=== PATIENT | female | born 1995 | race Caucasian/White ===

== ENCOUNTER 2017-03-08 11:16 | Emergency (ER) | payer BC ==
[2017-03-08 11:27] VITALS: TEMP 97.5; BMI 24.2
--- NOTE | 2017-03-08 11:59 | PDOC ---
History of Present Illness - General Chief Complaint: Syncope/Near Syncope Stated Complaint: NEAR SYNCOPE/SYNCOPE Time Seen by Provider: 03/08/17 11:35 History Source: Patient, Parent(s) - History of Present Illness Presenting Symptoms: Dizziness, Syncope Timing/Duration: reports: resolved prior to arrival Past History - Past Medical History Allergies/Adverse Reactions: Allergies Allergy/AdvReac Type Severity Reaction Status Date / Time pseudoephedrine AdvReac Verified 03/08/17 11:24 Home Medications: Ambulatory Orders Midodrine HCl 5 mg PO BID 01/26/15 Anemia: Yes Cardiac Disorders: Yes (NEURALLY MEDIATED SYNDROME) COPD: No - Immunization History Td Vaccination: Yes Immunization Up to Date: Yes - Suicide/Smoking/Psychosocial Hx Smoking Status: No Smoking History: Never smoked Have you smoked in the past 12 months: No Number of Cigarettes Smoked Daily: 0 Cigars Per Day: 0 Hx Alcohol Use: No Drug/Substance Use Hx: No Substance Use Type: None Hx Substance Use Treatment: No Review of Systems - Review of Systems Constitutional: No: Chills, Fever Respiratory: No: Shortness of Breath Cardiac (ROS): Yes: Lightheadedness, Syncope. No: Chest Pain, Palpitations ABD/GI: No: Nausea, Vomiting Neurological: Yes: Dizziness. No: Headache *Physical Exam - Vital Signs Last Vital Signs Temp Pulse Resp BP Pulse Ox 97.5 F L 71 18 108/64 100 03/08/17 11:24 03/08/17 11:24 03/08/17 11:24 03/08/17 11:24 03/08/17 11:24 - Physical Exam General Appearance: Yes: Appropriately Dressed. No: Apparent Distress HEENT: positive: Normal Voice Neck: positive: Supple Respiratory/Chest: positive: Lungs Clear, Normal Breath Sounds. negative: Respiratory Distress Cardiovascular: positive: Regular Rate, S1, S2 Gastrointestinal/Abdominal: positive: Soft. negative: Tender Extremity: positive: Normal Inspection Integumentary: positive: Dry, Warm Neurologic: positive: Fully Oriented, Alert, Normal Mood/Affect, Motor Strength 5/5 ED Treatment Course - LABORATORY CBC & Chemistry Diagram: 03/08/17 12:10 03/08/17 12:10 - ADDITIONAL ORDERS Additional order review: Laboratory Results 03/08/17 03/08/17 03/08/17 12:40 12:10 12:10 Sodium Potassium Chloride Carbon Dioxide Anion Gap BUN Creatinine Creat Clearance w eGFR Random Glucose Lactic Acid 0.7 Calcium Total Bilirubin AST ALT Alkaline Phosphatase Creatine Kinase Troponin I Total Protein Albumin Serum , Qual Negative Urine Color Yellow Urine Appearance Slcloudy Urine pH 6.0 Ur Specific [place] 1.016 Urine Protein Negative Urine Glucose (UA) Negative Urine Ketones Negative Urine Blood Negative Urine Nitrite Negative Urine Bilirubin Negative Urine Urobilinogen Negative 03/08/17 12:10 Sodium 139 Potassium 3.5 Chloride 104 Carbon Dioxide 29 Anion Gap 6 L BUN 11 D Creatinine 0.8 Creat Clearance w eGFR > 60 Random Glucose 93 Lactic Acid Calcium 8.9 Total Bilirubin 1.3 H D AST 29 D ALT 40 D Alkaline Phosphatase 65 D Creatine Kinase 97 Troponin I < 0.02 Total Protein 7.0 Albumin 3.8 D Serum , Qual Urine Color Urine Appearance Urine pH Ur Specific [place] Urine Protein Urine Glucose (UA) Urine Ketones Urine Blood Urine Nitrite Urine Bilirubin Urine Urobilinogen 03/08/17 12:10 RBC 4.17 MCV 87.9 MCHC 33.5 RDW 13.0 MPV 8.9 Neutrophils % 69.8 Lymphocytes % 21.3 D Monocytes % 6.9 Eosinophils % 1.2 Basophils % 0.8 - RADIOLOGY Radiology Studies Ordered: Category Date Time Status CHEST PA & LAT [RAD] Stat Radiology 03/08/17 11:51 Completed Medical Decision Making - Medical Decision Making 03/08/17 11:54 Patient is a 21-year-old female with 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 Patient states this a.m. when she awoke, she became lightheaded and syncopized onto her bed in front of her dorm mate. Dorm mate told patient she was out for approximately 5 minutes with possible seizure-like activity. Patient does report that she did have urinary incontinence, no tongue pain. Patient denies history of seizures and, in fact, during workup for syncope in the past, had an EEG which was negative. Patient states she feels better at this time. No headache, nausea, vomiting, chest pain or shortness of breath. See exam Recurrent syncope Dx w/ neurally mediated syncope and on midodrine ?seizure like activity w/ urinary incontinence this am for the first time, reports neg EEG in the past -ekg -labs including lactate (as can be elevated after true seizure) -parents wants me to contact pt's cards, Dr Flores at [phone] with disposition 03/08/17 13:06 Case discussed with patient's outside ambulatory care nurse, Dr. Flores, agrees that if workup is negative, patient can be discharged to follow-up with him 03/08/17 13:39 Workup negative. Patient currently stable for discharge *DC/Admit/Observation/Transfer Diagnosis at time of Disposition: Syncope Qualifiers: Syncope type: unspecified Qualified Code(s): R55 - Syncope and collapse - Discharge Dispostion Disposition: HOME Condition at time of disposition: Improved - Referrals Referrals: Fredo Flores MD [Primary Care Provider] - - Patient Instructions Additional Instructions: Your blood work, EKG and chest x-ray were all normal today. Your ambulatory care nurse wants you to contact him later on today to arrange follow up - Post Discharge Activity
[2017-03-08 12:31] LABS: BASOPHIL 0.8 % (0-2.0); EOSINOPHIL 1.2 % (0-4.5); MCH 29.4 pg (25.7-33.7); MCHC 33.5 g/dl (32.0-36.0); MEAN CELL VOLUME 87.9 fl (80-96); MEAN PLT VOLUME 8.9 fl (7.5-11.1); NEUTROPHILS 69.8 % (42.8-82.8); PLATELET COUNT 246 K/MM3 (134-434); WHITE BLOOD COUNT 6.8 K/mm3 (4.0-10.0)
[2017-03-08 12:50] LABS: ALBUMIN 3.8 g/dl (3.4-5.0); ANION GAP 6 (8-16); BILIRUBIN,TOTAL 1.3 mg/dL (0.2-1.0); CALCIUM 8.9 mg/dL (8.5-10.1); CO2 29 mmol/L (21-32); CREATININE 0.8 mg/dL (0.55-1.02); GLUCOSE,RANDOM 93 mg/dL (74-106); SGOT/AST 29 U/L (15-37); SGPT/ALT 40 U/L (12-78)
[2017-03-08 12:53] LABS: ALK PHOS 65 U/L (45-117); CPK 97 IU/L (26-192); TROPONIN I < 0.02 ng/ml (0.00-0.05)
[2017-03-08 13:08] LABS: URINE APPEARANCE SLCLOUDY; URINE BILIRUBIN NEGATIVE (NEGATIVE); URINE BLOOD NEGATIVE (NEGATIVE); URINE COLOR YELLOW; URINE GLUCOSE (UA) NEGATIVE (NEGATIVE); URINE KETONE NEGATIVE (NEGATIVE); URINE LEUK ESTERASE NEGATIVE (NEGATIVE); URINE NITRITE NEGATIVE (NEGATIVE); URINE PROTEIN NEGATIVE (NEGATIVE); URINE UROBILINOGEN NEGATIVE mg/dL (0.2-1.0)
--- NOTE | 2017-03-08 13:41 | PDOC ---
*Physical Exam - Vital Signs Last Vital Signs Temp Pulse Resp BP Pulse Ox 97.5 F L 71 18 108/64 100 03/08/17 11:24 03/08/17 11:24 03/08/17 11:24 03/08/17 11:24 03/08/17 11:24 ED Treatment Course - LABORATORY CBC & Chemistry Diagram: 03/08/17 12:10 03/08/17 12:10 - ADDITIONAL ORDERS Additional order review: Laboratory Results 03/08/17 03/08/17 03/08/17 12:40 12:10 12:10 Sodium Potassium Chloride Carbon Dioxide Anion Gap BUN Creatinine Creat Clearance w eGFR Random Glucose Lactic Acid 0.7 Calcium Total Bilirubin AST ALT Alkaline Phosphatase Creatine Kinase Troponin I Total Protein Albumin Serum , Qual Negative Urine Color Yellow Urine Appearance Slcloudy Urine pH 6.0 Ur Specific [place] 1.016 Urine Protein Negative Urine Glucose (UA) Negative Urine Ketones Negative Urine Blood Negative Urine Nitrite Negative Urine Bilirubin Negative Urine Urobilinogen Negative 03/08/17 12:10 Sodium 139 Potassium 3.5 Chloride 104 Carbon Dioxide 29 Anion Gap 6 L BUN 11 D Creatinine 0.8 Creat Clearance w eGFR > 60 Random Glucose 93 Lactic Acid Calcium 8.9 Total Bilirubin 1.3 H D AST 29 D ALT 40 D Alkaline Phosphatase 65 D Creatine Kinase 97 Troponin I < 0.02 Total Protein 7.0 Albumin 3.8 D Serum , Qual Urine Color Urine Appearance Urine pH Ur Specific [place] Urine Protein Urine Glucose (UA) Urine Ketones Urine Blood Urine Nitrite Urine Bilirubin Urine Urobilinogen 03/08/17 12:10 RBC 4.17 MCV 87.9 MCHC 33.5 RDW 13.0 MPV 8.9 Neutrophils % 69.8 Lymphocytes % 21.3 D Monocytes % 6.9 Eosinophils % 1.2 Basophils % 0.8 - RADIOLOGY Radiology Studies Ordered: Category Date Time Status CHEST PA & LAT [RAD] Stat Radiology 03/08/17 11:51 Completed *DC/Admit/Observation/Transfer Diagnosis at time of Disposition: Syncope Qualifiers: Syncope type: unspecified Qualified Code(s): R55 - Syncope and collapse - Discharge Dispostion Disposition: HOME Condition at time of disposition: Improved - Referrals Referrals: Fredo Flores MD [Primary Care Provider] - - Patient Instructions Additional Instructions: Your blood work, EKG and chest x-ray were all normal today. Your waiver analyst wants you to contact him later on today to arrange follow up - Post Discharge Activity Forms/Work/School Notes: Back to Work
[2017-03-08 14:17] VITALS: BP 109/64; PULSE 64
[2017-03-08 15:14] LABS: URINE LEUK ESTERASE NEGATIVE (NEGATIVE)
--- NOTE | 2017-03-09 15:04 | EKG ---
Test Reason : Blood Pressure : / mmHG Vent. Rate : 055 BPM Atrial Rate : 055 BPM P-R Int : 128 ms QRS Dur : 080 ms QT Int : 432 ms P-R-T Axes : -26 072 039 degrees QTc Int : 413 ms SINUS BRADYCARDIA OTHERWISE NORMAL ECG WHEN COMPARED WITH ECG OF 10-JAN-2016 09:41, NO SIGNIFICANT CHANGE WAS FOUND Confirmed by SENTHIL CARRINGTON MD ([id number]) on 03/09/2017 3:03:41 PM Referred By: Confirmed By:SENTHIL CARRINGTON MD
== END 2017-03-08 14:16 | disposition home or self-care (01) ==
LOC: JER 11:16
DX: R55 Syncope and collapse (principal)
CPT/HCPCS: 36415; 71020-TC; 80053; 81003; 82550; 83605; 84484; 84703; 85025; 93005; 93010; 99282-25

== ENCOUNTER 2017-07-11 21:39 | Emergency (ER) | payer BC ==
[2017-07-11 21:42] VITALS: BP 113/51; PULSE 55; TEMP 98.6; BMI 23.7
[2017-07-11 22:13] LABS: URINE APPEARANCE Clear; URINE BILIRUBIN Negative (NEGATIVE); URINE BLOOD Negative (NEGATIVE); URINE GLUCOSE (UA) Negative (NEGATIVE); URINE KETONE Negative (NEGATIVE); URINE LEUK ESTERASE Negative (NEGATIVE); URINE NITRITE Negative (NEGATIVE); URINE PROTEIN Negative (NEGATIVE); URINE UROBILINOGEN 0.2 (0.2-1.0)
[2017-07-11 22:14] LABS: HCG,QUALITATIVE URINE NEGATIVE; URINE COLOR YELLOW
--- NOTE | 2017-07-11 22:31 | PDOC ---
History of Present Illness - General Chief Complaint: Urinary Problem Stated Complaint: URINARY SX, ABD PAIN, CUELLAR Time Seen by Provider: 07/11/17 21:40 - History of Present Illness Initial Comments: This 22-year-old girl with a history of seizures and mitral valve "thickening" presents with a one-day history of epigastric burning pain/nausea. She has not had any vomiting or diarrhea. No fever/chills. She states that she has noted intermittent blood in her urine today but no history of dysuria/urinary urgency or frequency. Patient is concerned because she has been visiting her grandmother who has Escherichia coli UTI (resistant to antibiotics reportedly). No recent unusual food ingestion or travel. The patient's mother has had loose stools for the last 3-4 days. Past History - Past Medical History Allergies/Adverse Reactions: Allergies Allergy/AdvReac Type Severity Reaction Status Date / Time pseudoephedrine AdvReac Verified 03/08/17 11:24 Home Medications: Ambulatory Orders Midodrine HCl mg PO ASDIR 01/26/15 Anemia: Yes Cardiac Disorders: Yes (NEURALLY MEDIATED SYNCOPE) COPD: No Other medical history: ORTHOSTATIC HYPOTENSION - Immunization History Td Vaccination: Yes Immunization Up to Date: Yes - Suicide/Smoking/Psychosocial Hx Smoking Status: No Smoking History: Never smoked Have you smoked in the past 12 months: No Number of Cigarettes Smoked Daily: 0 Cigars Per Day: 0 Hx Alcohol Use: No Drug/Substance Use Hx: No Substance Use Type: None Hx Substance Use Treatment: No Review of Systems - Review of Systems Able to Perform ROS?: Yes Comments:: 12 point review of systems is negative except for what is noted in the history of present illness *Physical Exam - Vital Signs Last Vital Signs Temp Pulse Resp BP Pulse Ox 98.6 F 55 L 18 113/51 100 07/11/17 21:40 07/11/17 21:40 07/11/17 21:40 07/11/17 21:40 07/11/17 21:40 - Physical Exam Comments: GENERAL: Young adult female, alert and oriented 3, in no acute distress HEAD: Normal with no signs of trauma. EYES: PERRLA, EOMI, sclera anicteric, conjunctiva clear. ENT: Ears normal, nares patent, oropharynx clear without exudates. Moist mucous membranes. NECK: Normal range of motion, supple without lymphadenopathy, JVD, or masses. LUNGS: Breath sounds equal, clear to auscultation bilaterally. No wheezes, and no crackles. HEART:Regular rate and rhythm, normal S1 and S2 without murmur, rub or gallop. ABDOMEN:.normal bowel sounds ,mild epigastric tenderness No guarding or rebound.No masses No distention. EXTREMITIES: Normal range of motion, no edema. No clubbing or cyanosis. No erythema, or tenderness. NEUROLOGICAL: Cranial nerves II through XII grossly intact. Normal speech. No focal neurological deficits. MUSCULOSKELETAL: Back non-tender to palpation, no CVA tenderness SKIN: Warm, Dry, normal turgor, no rashes or lesions noted. ED Treatment Course - ADDITIONAL ORDERS Additional order review: Laboratory Results 07/11/17 21:51 Urine Color Yellow Urine Appearance Clear Urine pH 7.0 Ur Specific [place] 1.015 Urine Protein Negative Urine Glucose (UA) Negative Urine Ketones Negative Urine Blood Negative Urine Nitrite Negative Urine Bilirubin Negative Urine Urobilinogen 0.2 Ur Leukocyte Esterase Negative Urine HCG, Qual Negative Progress Note - Progress Note Progress Note: This 22-year-old woman presents with brief history of nausea and epigastric burning pain. She has been exposed to acute gastroenteritis in her household ( mother has diarrhea for the last 3-4 days). Also, she is concerned because she is been exposed to parent resistant Escherichia coli UTI in her grandmother with whom she is been visiting the last several days. Exam as noted. No evidence of acute dehydration or significant tenderness of her abdomen. Urinalysis is normal but urine culture and sensitivity will be sent because patient has significant concern about UTI. Patient has been advised to eat a light diet and continue to drink plenty of fluids as tolerated. She states that she has used Zofran ODT in the past and has been ineffective; Pepto-Bismol usually more effective for her for nausea. *DC/Admit/Observation/Transfer Diagnosis at time of Disposition: Gastroenteritis - Discharge Dispostion Disposition: HOME Condition at time of disposition: Stable - Referrals - Patient Instructions Printed Discharge Instructions: DI for Bacterial Gastroenteritis -- Adult Additional Instructions: Light diet Drink plenty of fluids Pepto-Bismol as small as needed for nausea/diarrhea Return to ER if you have persistent nausea/vomiting/diarrhea or become dehydrated Follow-up with your general doctor within 5 days any - Post Discharge Activity
== END 2017-07-11 23:13 | disposition home or self-care (01) ==
LOC: FER 21:39
DX: K52.9 Noninfective gastroenteritis and colitis, unspecified (principal); I51.9 Heart disease, unspecified; D64.9 Anemia, unspecified; I95.1 Orthostatic hypotension
CPT/HCPCS: 81003; 84703; 87086; 99282-25

== ENCOUNTER 2017-07-27 11:25 | Emergency (ER) | payer BC ==
[2017-07-27 11:32] VITALS: BP 126/73; PULSE 52; TEMP 98.7; BMI 23.7
--- NOTE | 2017-07-27 11:37 | PDOC ---
History of Present Illness - General Chief Complaint: Pain Stated Complaint: RLQ ABD PAIN Time Seen by Provider: 07/27/17 11:37 - History of Present Illness Initial Comments: 07/27/17 12:36 Chief complaint: Abdominal pain History of present illness: Right lower quadrant abdominal pain since 3 AM this morning. Nausea but no vomiting. One episode of diarrhea upon arrival to the ER. Father has a GI illness, which is mild. She has been visiting her grandmother in the hospital/fdc, who reportedly has Escherichia coli Review of systems as noted above. Otherwise, no fevers/chills, URI symptoms, sore throat, cough, chest pain, shortness of breath, visual or focal neurologic symptoms, unsteadiness of gait, dysuria or other urinary tract symptoms, vaginal bleeding or discharge. Last menses 2 weeks ago. Regular. On control pills. Past medical history: History of near syncope, positive tilt table test, maintained on Midrin. "Thickening" of the mitral valve. Otherwise healthy. Social/family history reviewed and noncontributory Physical exam: Alert and oriented well-developed well-nourished no acute distress cooperative Afebrile, vital signs normal No pallor or icterus HEENT clear Neck supple without bruit mass or nodes Chest clear CV regular without murmur rub or gallop Abdomen nondistended. Bowel sounds normal. Soft without mass or organomegaly. Mild tenderness to deep palpation in the suprapubic and right lower quadrant without guarding or rebound. No CVAT Neurological intact Skin clear, no rash, adequate turgor and wet mucous membranes Extremities no CCE Impression: Right lower quadrant/right pelvic pain, minimal tenderness without guarding or rebound, probably no peritoneal irritation, father was GI illness in patient with nausea and diarrhea as well, most likely viral gastroenteritis, possibly ovulation pain, less likely appendicitis Plan: Labs, urinalysis, test, further evaluation and treatment depending on results. Past History - Past Medical History Allergies/Adverse Reactions: Allergies Allergy/AdvReac Type Severity Reaction Status Date / Time pseudoephedrine AdvReac Verified 03/08/17 11:24 Home Medications: Ambulatory Orders Midodrine HCl 5 mg PO ASDIR 01/26/15 Norethindrone-E.estradiol-Iron [Loestrin Fe 1-20 Tablet] 1 each PO ASDIR 04/30/ 18 Anemia: Yes Cardiac Disorders: Yes (NEURALLY MEDIATED SYNDROME) COPD: No - Immunization History Td Vaccination: Yes Immunization Up to Date: Yes - Suicide/Smoking/Psychosocial Hx Smoking Status: No Smoking History: Never smoked Have you smoked in the past 12 months: No Number of Cigarettes Smoked Daily: 0 Cigars Per Day: 0 Hx Alcohol Use: No Drug/Substance Use Hx: No Substance Use Type: None Hx Substance Use Treatment: No *Physical Exam - Vital Signs Last Vital Signs Temp Pulse Resp BP Pulse Ox 98.7 F 52 L 18 126/73 98 07/27/17 11:25 07/27/17 11:25 07/27/17 11:25 07/27/17 11:25 07/27/17 11:25 ED Treatment Course - LABORATORY CBC & Chemistry Diagram: 07/27/17 12:00 07/27/17 12:00 Medical Decision Making - Medical Decision Making 07/27/17 15:08 CBC, chemistries, urinalysis and test without significant abnormalities 07/27/17 15:49 CT is negative for acute abdominal or pelvic pathology. Most likely diagnosis is acute viral gastroenteritis. Symptomatic treatment and follow-up if condition worsens. Fully ambulatory and in no significant pain or other distress upon discharge with family to follow-up as directed *DC/Admit/Observation/Transfer Diagnosis at time of Disposition: Gastroenteritis - Discharge Dispostion Disposition: HOME Condition at time of disposition: Improved Admit: No - Referrals Referrals: Fredo Flores MD [Primary Care Provider] - 2 Days - Patient Instructions Printed Discharge Instructions: DI for Viral Gastroenteritis -- Adult - Post Discharge Activity Forms/Work/School Notes: Back to School
[2017-07-27 12:05] LABS: HCG,QUALITATIVE URINE NEGATIVE
[2017-07-27 12:06] LABS: PH,URINE 6.5 (4.5-8); URINE APPEARANCE Clear; URINE BILIRUBIN Negative (NEGATIVE); URINE BLOOD Negative (NEGATIVE); URINE GLUCOSE (UA) Negative (NEGATIVE); URINE KETONE Negative (NEGATIVE); URINE LEUK ESTERASE Negative (NEGATIVE); URINE NITRITE Negative (NEGATIVE); URINE PROTEIN Negative (NEGATIVE); URINE UROBILINOGEN 0.2 (0.2-1.0)
[2017-07-27 12:25] LABS: URINE COLOR YELLOW
[2017-07-27 12:31] LABS: BASO % 0.5 % (0-2.0); EOS % 0.8 % (0-4.5); HEMATOCRIT 37.2 % (32.4-45.2); HEMOGLOBIN 12.9 GM/dl (10.7-15.3); LYMPH % 20.9 % (8-40); MCH 30.7 pg (25.7-33.7); MCHC 34.6 g/dl (32.0-36.0); MEAN CELL VOLUME 88.9 fl (80-96); MEAN PLT VOLUME 9.1 fl (7.5-11.1); MONO % 7.5 % (3.8-10.2); NEUT % 70.3 % (42.8-82.8); PLATELET COUNT 246 K/MM3 (134-434); RBC 4.19 M/mm3 (3.60-5.2); RDW 12.7 % (11.6-15.6); WHITE BLOOD COUNT 7.4 K/mm3 (4.0-10.8)
[2017-07-27 12:34] LABS: ALBUMIN 3.9 g/dl (3.5-5.0); ALK PHOS 40 U/L (32-92); ANION GAP 7 (8-16); BILIRUBIN,TOTAL 1.3 mg/dl (0.2-1.0); BLOOD UREA NITROGEN 10 mg/dl (7-18); CALCIUM 9.1 mg/dl (8.4-10.2); CHLORIDE 102 mmol/L (98-107); CO2 26 mmol/L (22-28); GLUCOSE,RANDOM 84 mg/dl (74-106); POTASSIUM 3.8 mmol/L (3.5-5.1); SGOT/AST 23 U/L (10-42); SGPT/ALT 17 U/L (10-40); SODIUM 135 mmol/L (136-145); TOT PROT 7.1 g/dl (6.4-8.3)
[2017-07-27 12:41] LABS: CREATININE 0.8 mg/dl (0.6-1.3)
[2017-07-27] MEDS ORDERED: SODIUM CHLORIDE 1,000 ML IV STA (12:43)
== END 2017-07-27 15:20 | disposition home or self-care (01) ==
LOC: FER 11:25
PROC: 3E0337Z Introduction of Electrolytic and Water Balance Substance into Peripheral Vein, Percutaneous Approach (ICD-10-PCS; principal; 2017-07-27)
DX: K52.9 Noninfective gastroenteritis and colitis, unspecified (principal)
CPT/HCPCS: 36415; 74176-TC; 80053; 81003; 84703; 85025; 99284-25; J7030

== ENCOUNTER 2017-10-14 08:45 | Day surgery (SDC) | payer BC ==
[2017-10-13 15:40] VITALS: BMI 23.7
--- NOTE | 2017-10-13 17:24 | HP ---
DATE OF ADMISSION: 10/14/2017 DATE OF SURGERY: 10/14/2017 ADMISSION DIAGNOSES: Adenoid hypertrophy with obstruction, inferior turbinate hypertrophy, and snoring. HISTORY OF PRESENT ILLNESS: This 22-year-old female has had longstanding snoring and nasal obstruction. She has had a poor sense of smell, as well as some headaches. This is worse at night with lots of mucus and mouth breathing. She denies any history of nasal allergies but does sense that the side of blockage is further back in her nose. She has not responded well to additional medical therapy. She does have markedly enlarged adenoids with airway obstruction as well as inferior turbinate hypertrophy and is now admitted for adenoidectomy and submucous resection of inferior turbinates. PAST MEDICAL HISTORY: Primary medical doctor is Rustam Ferrer MD. Patient does have a history of mononucleosis. She also reports a history of mitral valve thickening and neurally mediated syncope. PRESENT MEDICATIONS: Include midodrine. ALLERGIES TO MEDICATIONS: None known. She does not smoke. There is no past medical history. She has not undergone general anesthesia before. Bleeding history is negative, and family history is negative for bleeding or anesthesia problems. PHYSICAL EXAMINATION: General: Patient is a well-developed female in no distress. HEENT: Head is normal. Eyes are clear. Ears are unremarkable. The mouth and throat are normal. The nose has significant inferior turbinate hypertrophy. The nasopharynx has markedly enlarged adenoids with obstruction. Preoperative labs are pending. IMPRESSION: Severe adenoid hypertrophy with obstruction, inferior turbinate hypertrophy with obstruction. PLAN: Adenoidectomy, submucous resection of inferior turbinates under anesthesia. INFORMED CONSENT: Patient and her parents understand the indications, alternatives, nature, risks, and benefits of proposed surgery. Potential complications including, but not limited to, anesthesia, bleeding, infection, ear pain, bad breath, stiff neck, nasal regurgitation, voice change, and recurrence were discussed in detail. They understand and accept these risks and wish to proceed with surgery. Questions are answered fully. DUNG BATES M.D. [id number]
[2017-10-14] MEDS ORDERED: fentaNYL CITRATE 250 MCG/5 ML VIAL ONE (08:56)
[2017-10-14] MEDS ORDERED: DEXAMETHASONE SOD PHOSPHATE 4 MG/1 ML VIAL ONE (08:57)
[2017-10-14] MEDS ORDERED: LIDOCAINE HCL/PF 2% SDV 5ML VIAL ONE (08:57)
[2017-10-14] MEDS ORDERED: ROCURONIUM BROMIDE 50 MG/5 ML VIAL ONE (08:57)
[2017-10-14] MEDS ORDERED: PROPOFOL 20 ML ONE (08:57)
[2017-10-14] MEDS ORDERED: MIDAZOLAM HCL 2 MG/2 ML SINGLE DOSE VIAL ONE (08:57)
--- NOTE | 2017-10-14 09:53 | HP ---
History & Physical Update - History History: No Change - Physical Physical: No Change - Assessment Assessment: No Change - Plan Plan: No Change
[2017-10-14] MEDS ORDERED: COCAINE HCL 4% TOPICAL SOLUTION 4 ML BOTTLE TP ONE ×2 (10:47→10:49)
[2017-10-14] MEDS ORDERED: BACITRACIN 15 GM TUBE TOPICAL OINTMENT ONE (11:14)
[2017-10-14] MEDS ORDERED: GLYCOPYRROLATE 0.2 MG/1 ML VIAL ONE (11:25)
[2017-10-14] MEDS ORDERED: NEOSTIGMINE METHYLSULFATE 0.5 MG/ML - 10 ML MDV ONE (11:25)
--- NOTE | 2017-10-14 11:36 | OP ---
Operative Note - Note: Operative Date: 10/14/17 ([id number]) Pre-Operative Diagnosis: adenoid hypertrophy, inferior turbinate hypertrophy Operation: adenoidectomy, submucus resection of bilateral inferior turbinates Findings: adenoid hypertrophy with obstruction, bilateral inferior turbinate hypertrophy Post-Operative Diagnosis: Same as Pre-op Surgeon: Dennis Arias Anesthesiologist/MOBILE LAB TECHNICIAN: Gabriela Cadena Anesthesia: General Specimens Removed: inferior tubrinate tissue bilateral Estimated Blood Loss (mls): 10 Blood Volume Replaced (mls): 0 Operative Report Dictated: Yes
[2017-10-14] MEDS ORDERED: oxyCODONE HCL 5 MG TABLET PO PRN ×2 (11:37→11:50)
[2017-10-14] MEDS ORDERED: TRIMETHOBENZAMIDE HCL 200MG/2ML INJ IM PRN (11:37)
[2017-10-14] MEDS ORDERED: ACETAMINOPHEN 325 MG TABLET (FP) PO PRN (11:37)
[2017-10-14] MEDS ORDERED: LACTATED RINGERS SOLUTION 1,000 ML IV SCH (11:45)
[2017-10-14] MEDS ORDERED: ONDANSETRON 4 MG/2 ML VIAL IVPUSH PRN (11:50)
[2017-10-14 12:50] VITALS: TEMP 97.8
[2017-10-14] MEDS ORDERED: ONDANSETRON 4 MG/2 ML VIAL ONE (12:54)
[2017-10-14] MEDS ORDERED: ONDANSETRON 4 MG/2 ML VIAL IVPUSH ONE (13:00)
[2017-10-14 13:13] VITALS: PULSE 58
--- NOTE | 2017-10-14 14:14 | OP ---
DATE OF OPERATION: 10/14/2017 PREOPERATIVE DIAGNOSES: Adenoid hypertrophy with obstruction. Inferior turbinate hypertrophy with obstruction and snoring. POSTOPERATIVE DIAGNOSES: Adenoid hypertrophy with obstruction. Inferior turbinate hypertrophy with obstruction and snoring. PROCEDURES: Adenoidectomy, bilateral submucous resection of inferior turbinates. SURGEON: Dung Arias MD ANESTHESIOLOGIST: , COLOR PRINT INSPECTOR ANESTHESIA: General via endotracheal tube. INDICATIONS: This 22-year-old female has had long-standing nasal obstruction which has failed to improve with medical and allergy management. She has been found to have significant adenoid hypertrophy with obstruction posteriorly, as well as inferior turbinate hypertrophy with obstruction in the nasal cavities. She is now brought to surgery for treatment. FINDINGS: Adenoid hypertrophy with obstruction and inferior turbinate hypertrophy with obstruction. PROCEDURE: The patient was brought to the operating room and placed on the operating table in the supine position. General endotracheal anesthesia was induced to a satisfactory level and she was prepped and draped in the usual fashion for surgery. The adenoids were first addressed. A shoulder roll was placed. A McIvor mouth gag with a ring blade was inserted and the oropharynx was exposed. The soft palate and uvula were normal and there was no evidence of submucosal cleft palate. The tonsils were not enlarged. Hypopharyngeal pack was placed. Soft palate was retracted with a red rubber catheter and the adenoids observed with mirror. The Coblation device was used to ablate all visible adenoid tissue. This was carried out along the posterior wall, up to the posterior choana, and also laterally on each side to the fossa of Rosenmuller. All adenoid tissue was removed. The airway was markedly improved. Hemostasis was achieved with cauterization. After completion of adenoidectomy, attention was then turned to the inferior turbinates. Cocaine 4% was placed topically in the nasal cavities. After an appropriate time, these were removed. Lidocaine 1% with epinephrine 1:200,000 was infiltrated into each inferior turbinate. Additional time was allowed for optimal vasoconstriction. The left inferior turbinate was first addressed. An anterior incision was created with a 15-blade until the inferior turbinate bone was encountered. This was then dissected free from surrounding tissue with the Boundary elevator. The inferior turbinate bone was then removed in a submucous fashion. Submucosal cauterization was performed with the suction cautery. The incision was closed with 4-0 chromic. The airway was improved. Attention was then turned toward the right inferior turbinate. Again, the anterior incision was created with a 15-blade to the inferior turbinate bone. The soft tissue was elevated from it and the inferior turbinate bone was removed in a submucous fashion. Submucosal cauterization was performed with the suction cautery. The incision was then closed with a 4-0 chromic. Inspection demonstrated improved airways. The more posterior part was moved laterally, effecting therapeutic outfracture of any remaining turbinate bone posteriorly. Folded Telfa gauze coated with antibiotic ointment and joined with a silk suture was then placed in each nasal cavity. The patient tolerated the procedure well. She was then awakened from general anesthesia and transferred to the PACU in stable condition. Estimated blood loss was 10 mL. She received crystalloid during the procedure. The inferior turbinate tissue was sent to Pathology for routine studies. There were no complications. DUNG ARIAS M.D. [id number]
[2017-10-14] MEDS ORDERED: oxyCODONE HCL 5 MG TABLET ONE (14:16)
[2017-10-14 18:57] VITALS: BP 112/74
== END 2017-10-14 16:45 | disposition home or self-care (01) ==
LOC: JASU-SURG 08:45
PROVIDERS: ATTEND Otolaryngology
PROC: 0CTQXZZ Resection of Adenoids, External Approach (ICD-10-PCS; principal; 2017-10-14 10:00)
PROC: 09TL7ZZ Resection of Nasal Turbinate, Via Natural or Artificial Opening (ICD-10-PCS; 2017-10-14 10:00)
DX: J35.2 Hypertrophy of adenoids (principal); J34.3 Hypertrophy of nasal turbinates; R06.83 Snoring
CPT/HCPCS: 84703

== ENCOUNTER 2017-12-11 14:28 | Emergency (ER) | payer BC ==
[2017-12-11 14:46] VITALS: BP 111/65; PULSE 61; TEMP 98.4; BMI 23.1
--- NOTE | 2017-12-11 15:13 | PDOC ---
Attending Attestation - Resident Resident Name: Andriy Brennan - ED Attending Attestation I have performed the following: I have examined & evaluated the patient, The case was reviewed & discussed with the resident, I agree w/resident's findings & plan, Exceptions are as noted - HPI HPI: 12/11/17 15:09 22 F with h/o thickened mitral valve presenting to ED with R knee pain. Pt states she was going downstairs yesterday while texting. Missed the last step and landed on her R foot, twisting her R knee inward. Pt denies falling. Was able to bear weight afterwards but with some pain. Pt states pain worsened today , though she is still able to bear weight. ROM limited due to pain. Denies weakness/numbness distally. - Physicial Exam PE: 12/11/17 15:10 "GENERAL: Awake, alert, and fully oriented, in no acute distress. HEAD: No signs of trauma EYES: PERRLA, EOMI, sclera anicteric, conjunctiva clear ENT: Auricles normal inspection, hearing grossly normal, nares patent, oropharynx clear without exudates. Moist mucosa NECK: Nontender, no stepoffs, Normal ROM, supple, no lymphadenopathy, JVD, or masses LUNGS: Breath sounds equal, clear to auscultation bilaterally. No wheezes, and no crackles HEART: Regular rate and rhythm, normal S1 and S2, no murmurs, rubs or gallops ABDOMEN: Soft, nontender, normoactive bowel sounds. No guarding, no rebound. No masses EXTREMITIES: + tenderness medial jointline R knee with mild effusion, ROM limited 2/2 pain, no bony tenderness, + valgus stress, + apley grind NEUROLOGICAL: Cranial nerves II through XII intact. 5/5 strength and sensation in all extremities, Normal speech, normal gait, normal cerebellar function SKIN: Warm, Dry, normal turgor, no rashes or lesions noted." - Medical Decision Making 12/11/17 15:13 22 F with R knee pain. Possible meniscus tear vs ligament tear. No evidence of bony injury on exam. - Naproxen - Knee immobilizer - F/u ortho Pt is well appearing, with normal vitals. Clinically stable for DC at this time. I discussed the physical exam findings, ancillary test results and final diagnoses with the patient. I answered all of the patient's questions. The patient was satisfied with the care received and felt comfortable with the discharge plan and treatment plan. The patient agrees to follow up with the primary care physician within 24-72 hours.
[2017-12-11] MEDS ORDERED: NAPROXEN 500 MG TABLET (FP) PO ONE (15:14)
--- NOTE | 2017-12-11 15:20 | PDOC ---
History of Present Illness <Derrick Bernard - Last Filed: 12/11/17 15:20> - General History Source: Patient Exam Limitations: No Limitations - History of Present Illness Initial Comments: 12/11/17 16:35 The patient is a 22F with a PMH of mitral valve thickening and vasovagal syncope who presents to the ER with complaints of pain in the R knee. The patient states that she was walking down the stairs and missed the last step. She planted her R foot on the ground and twisted to the L. She denies any trauma to her knee or hearing any popping sound. She states that she was able to walk on it with a limp. She denies LOC or trauma to any other part of her body. She admits to icing, wrapping, and resting her foot but states that the pain has worsened. She describes pain around her R patella, nonradiating, sharp. <Andriy Brennan - Last Filed: 12/11/17 16:55> - General Chief Complaint: Injury Stated Complaint: RIGHT KNEE INJURY AND PAIN Time Seen by Provider: 12/11/17 14:33 Past History <Derrick Bernard - Last Filed: 12/11/17 15:20> - Past Medical History Anemia: No Cardiac Disorders: Yes (NEURALLY MEDIATED SYNCOPE, h/o mitral valve thickening) CVA: No COPD: No CHF: No Dementia: No Diabetes: No GI Disorders: Yes (acid reflux occas) Disorders: No HTN: No Hypercholesterolemia: No Liver Disease: No Seizures: No Thyroid Disease: No - Reproductive History Is Patient Now?: No - Immunization History Td Vaccination: Yes Immunization Up to Date: Yes - Suicide/Smoking/Psychosocial Hx Smoking Status: No Smoking History: Never smoked Have you smoked in the past 12 months: No Number of Cigarettes Smoked Daily: 0 Cigars Per Day: 0 Information on smoking cessation initiated: No Hx Alcohol Use: No Drug/Substance Use Hx: No Substance Use Type: None Hx Substance Use Treatment: No <Andriy Brennan - Last Filed: 12/11/17 16:55> - Past Medical History Allergies/Adverse Reactions: Allergies Allergy/AdvReac Type Severity Reaction Status Date / Time pseudoephedrine AdvReac Verified 12/11/17 14:30 Home Medications: Ambulatory Orders Midodrine HCl 5 mg PO ASDIR 01/26/15 Norethindrone-E.estradiol-Iron [Loestrin Fe 1-20 Tablet] 1 each PO ASDIR Midodrine HCl 10 mg PO DAILY 10/13/17 Naproxen [Naprosyn -] 500 mg PO BID #14 tablet 12/11/17 Review of Systems - Review of Systems Able to Perform ROS?: Yes Comments:: 12/11/17 16:47 GENERAL/CONSTITUTIONAL: No fever or chills. No weakness. HEAD, EYES, EARS, NOSE AND THROAT: No change in vision. No ear pain or discharge. No sore throat. CARDIOVASCULAR: No chest pain, palpitations, or lightheadedness. GASTROINTESTINAL: No nausea, vomiting, diarrhea, constipation, or abdominal pain. MUSCULOSKELETAL: Positive for R knee pain. Otherwise, no joint or muscle swelling or pain. No neck or back pain. SKIN: No rash or lesions. NEUROLOGIC: No headache, numbness, tingling, focal weakness, loss of consciousness, or change in strength/sensation. Is the patient limited Slovenian proficient: No <Andriy Brennan - Last Filed: 12/11/17 16:55> *Physical Exam - Vital Signs Last Vital Signs Temp Pulse Resp BP Pulse Ox 98.4 F 61 16 111/65 100 12/11/17 14:30 12/11/17 14:30 12/11/17 14:30 12/11/17 14:30 12/11/17 14:30 <Derrick Bernard - Last Filed: 12/11/17 15:20> - Vital Signs Last Vital Signs Temp Pulse Resp BP Pulse Ox 98.4 F 61 16 111/65 100 12/11/17 14:30 12/11/17 14:30 12/11/17 14:30 12/11/17 14:30 12/11/17 14:30 - Physical Exam Comments: 12/11/17 16:49 GENERAL: Well developed, well nourished. Awake and alert. No acute distress. HEENT: Normocephalic, atraumatic. Hearing grossly normal. Moist mucous membranes. NECK: Supple. Full ROM. CARDIOVASCULAR: Regular rate and rhythm. No murmurs, rubs, or gallops. PULMONARY: No evidence of respiratory distress. Lungs clear to auscultation bilaterally. No wheezing, rales or rhonchi. ABDOMINAL: Soft. Non-tender. Non-distended. No rebound or guarding. GENITOURINARY: No CVA tenderness bilaterally. MUSCULOSKELETAL: Decreased ROM in R knee. TTP around patella. No crepitus. No erythema or warmth to touch. No Anterior or posterior excess movement. EXTREMITIES: No cyanosis. No clubbing. No edema. No calf tenderness or swelling. SKIN: Warm and dry. Normal capillary refill. No rashes. No jaundice. NEUROLOGICAL: Alert, awake, appropriate. Cranial nerves 2-12 grossly intact. Normal speech. Ataxic gait. PSYCHIATRIC: Cooperative. Good eye contact. Appropriate mood and affect. <Andriy Brennan - Last Filed: 12/11/17 16:55> Medical Decision Making - Medical Decision Making 12/11/17 16:53 The patient is a 22F who presents after a mechanical injury to her leg. PE shows likely a meniscal tear. Will place in knee immobilizer and d/c with ortho f/u. Low concern for fracture as there was no trauma to the knee. <Andriy Brennan - Last Filed: 12/11/17 16:55> *DC/Admit/Observation/Transfer <Marco AntonioDerrick - Last Filed: 12/11/17 15:20> - Discharge Dispostion Decision to Admit order: No <Andriy Brennan - Last Filed: 12/11/17 16:55> Diagnosis at time of Disposition: Right knee pain Qualifiers: Chronicity: acute Qualified Code(s): M25.561 - Pain in right knee - Discharge Dispostion Disposition: HOME Condition at time of disposition: Stable - Prescriptions Prescriptions: Naproxen [Naprosyn -] 500 mg PO BID #14 tablet - Referrals Referrals: Arthur Rose MD [Staff Physician] - - Patient Instructions Printed Discharge Instructions: DI for Knee Pain Additional Instructions: Please follow up with your orthopedic surgeon on Thursday (or Thursday). Avoid bearing weight until you are cleared by your orthopedist. Keep the knee immobilizer on at all times. Take Naprosyn NEEDED with food. Follow up with your primary care doctor as needed. - Post Discharge Activity Forms/Work/School Notes: Back to Work, Back to School
[2017-12-11] MEDS ORDERED: NAPROXEN 250 MG TABLET (FP) ONE (15:42)
== END 2017-12-11 15:57 | disposition home or self-care (01) ==
LOC: FER 14:28
PROC: 2W3QX1Z Immobilization of Right Lower Leg using Splint (ICD-10-PCS; principal; 2017-12-11)
DX: M25.561 Pain in right knee (principal)
CPT/HCPCS: 99282-25

== ENCOUNTER 2017-12-31 10:34 | Emergency (ER) | payer BC ==
--- NOTE | 2017-12-31 10:39 | PDOC ---
History of Present Illness - General Chief Complaint: Injury Stated Complaint: RIGHT HAND INJURY Time Seen by Provider: 12/31/17 10:36 - History of Present Illness Initial Comments: 12/31/17 10:38 22f with no pmh presents to the ED after getting her car door slammed onto her right hand yesterday. The door slammed along the wrist and the hand There was some bluish swelling that resolved after ice. Patient is still in a lot of pain, unable to close hand into a fist or even grab her phone with it. Is left handed. 12/31/17 10:49 Past History - Past Medical History Allergies/Adverse Reactions: Allergies Allergy/AdvReac Type Severity Reaction Status Date / Time pseudoephedrine AdvReac Verified 12/31/17 10:39 Home Medications: Ambulatory Orders Midodrine HCl 5 mg PO ASDIR 01/26/15 Norethindrone-E.estradiol-Iron [Loestrin Fe 1-20 Tablet] 1 each PO ASDIR Midodrine HCl 10 mg PO DAILY 10/13/17 Naproxen [Naprosyn -] 500 mg PO BID #14 tablet 12/11/17 Anemia: No Cardiac Disorders: Yes (NEURALLY MEDIATED SYNCOPE, h/o mitral valve thickening) CVA: No COPD: No CHF: No Dementia: No Diabetes: No GI Disorders: Yes (acid reflux occas) Disorders: No HTN: No Hypercholesterolemia: No Liver Disease: No Seizures: No Thyroid Disease: No - Immunization History Td Vaccination: Yes Immunization Up to Date: Yes - Suicide/Smoking/Psychosocial Hx Smoking Status: No Smoking History: Never smoked Have you smoked in the past 12 months: No Number of Cigarettes Smoked Daily: 0 Cigars Per Day: 0 Hx Alcohol Use: No Drug/Substance Use Hx: No Substance Use Type: None Hx Substance Use Treatment: No Review of Systems - Review of Systems Able to Perform ROS?: Yes Is the patient limited Kyrgyz proficient: No Constitutional: No: Symptoms Reported HEENTM: No: Symptoms Reported Respiratory: No: Symptoms reported Cardiac (ROS): No: Symptoms Reported ABD/GI: No: Symptoms Reported : No: Symptoms Reported Musculoskeletal: No: Symptoms Reported Integumentary: No: Symptoms Reported Neurological: Yes: Numbness, Tingling All Other Systems: Reviewed and Negative *Physical Exam - Physical Exam General Appearance: Yes: Nourished, Appropriately Dressed. No: Apparent Distress HEENT: positive: EOMI, MARTIN, Normal ENT Inspection Respiratory/Chest: positive: Lungs Clear, Normal Breath Sounds. negative: Chest Tender Cardiovascular: positive: Regular Rhythm, Regular Rate, S1, S2 Gastrointestinal/Abdominal: positive: Normal Bowel Sounds, Flat, Soft. negative : Tender Extremity: positive: Tender (over wrist joint), Other. negative: Normal Range of Motion (unable to close hand) Integumentary: positive: Normal Color, Dry, Warm. negative: Cyanotic Medical Decision Making - Medical Decision Making 12/31/17 11:01 x rays to rule out fractures and splint. 12/31/17 11:28 No fractures seen on xray. will discharge with Orthopedic referral. *DC/Admit/Observation/Transfer Diagnosis at time of Disposition: Injury of right hand - Discharge Dispostion Disposition: HOME Condition at time of disposition: Good Decision to Admit order: No - Referrals Referrals: Fredo Flores MD [Primary Care Provider] - Benjamín Beatty MD [Staff Physician] - - Patient Instructions Printed Discharge Instructions: How to Use a Sling Additional Instructions: Follow up with Dr. Beatty, orthopedic surgery, within the next 2 days. Come back to the ER for any new, worsening or concerning symptoms. - Post Discharge Activity
[2017-12-31 10:48] VITALS: BP 123/75; PULSE 50; TEMP 98.9; BMI 22.7
[2017-12-31] MEDS ORDERED: IBUPROFEN 600 MG TABLET (FP) PO ONE ×2 (11:33→11:40)
[2017-12-31 12:19] LABS: PH,URINE 5.5 (4.5-8); URINE APPEARANCE Slightly; URINE BILIRUBIN Negative (NEGATIVE); URINE COLOR Yellow; URINE GLUCOSE (UA) Negative (NEGATIVE); URINE KETONE Negative (NEGATIVE); URINE LEUK ESTERASE 2+ (NEGATIVE); URINE NITRITE Negative (NEGATIVE); URINE PROTEIN Negative (NEGATIVE); URINE UROBILINOGEN 0.2 (0.2-1.0)
[2017-12-31 12:33] LABS: EPI CELLS MANY /HPF; URINE BACTERIA MANY /hpf (NEGATIVE); URINE WBC 20-30 (0-5)
== END 2017-12-31 11:57 | disposition home or self-care (01) ==
LOC: FER 10:34
PROC: 2W38X1Z Immobilization of Right Upper Extremity using Splint (ICD-10-PCS; principal; 2017-12-31)
DX: S69.91XA Unspecified injury of right wrist, hand and finger(s), initial encounter (principal); W23.0XXA Caught, crushed, jammed, or pinched between moving objects, initial encounter; Y93.89 Activity, other specified; Y92.89 Other specified places as the place of occurrence of the external cause
CPT/HCPCS: 73110-TC-RT-FY; 73130-TC-RT-FY; 81003; 81015; 84703; 99282-25

== ENCOUNTER 2019-04-10 11:30 | Emergency (ER) | payer BC ==
--- NOTE | 2019-04-10 11:35 | PDOC ---
History of Present Illness - General Chief Complaint: Cold Symptoms Stated Complaint: SORE THROAT,COUGH Time Seen by Provider: 04/10/19 11:35 Past History - Past Medical History Allergies/Adverse Reactions: Allergies Allergy/AdvReac Type Severity Reaction Status Date / Time pseudoephedrine AdvReac Verified 12/10/18 11:05 Home Medications: Ambulatory Orders Midodrine HCl 5 mg PO DAILY 10/13/17 Amoxicillin 875 mg PO BID #20 tablet 04/10/19 Sertraline HCl 25 mg PO DAILY 04/10/19 Anemia: No Cardiac Disorders: Yes (NEURALLY MEDIATED SYNCOPE, h/o mitral valve thickening) CVA: No COPD: No CHF: No Dementia: No Diabetes: No GI Disorders: Yes (acid reflux occas) Disorders: No HTN: No Hypercholesterolemia: No Liver Disease: No Seizures: No Thyroid Disease: No - Immunization History Td Vaccination: Yes Immunization Up to Date: Yes - Psycho Social/Smoking Cessation Hx Smoking Status: No Smoking History: Never smoked Have you smoked in the past 12 months: No Number of Cigarettes Smoked Daily: 0 Cigars Per Day: 0 Hx Alcohol Use: No Drug/Substance Use Hx: No Substance Use Type: None Hx Substance Use Treatment: No Discharge - Discharge Information Problems reviewed: Yes Clinical Impression/Diagnosis: Otitis media Qualifiers: Otitis media type: unspecified Chronicity: acute Qualified Code(s): H66.90 - Otitis media, unspecified, unspecified ear Condition: Good Disposition: HOME - Admission No - Additional Discharge Information Prescriptions: Amoxicillin 875 mg PO BID #20 tablet - Follow up/Referral - Patient Discharge Instructions Patient Printed Discharge Instructions: Middle Ear Infection Additional Instructions: you came to the ED for fever, and were found to have an ear infection. I have prescribed an antibiotic that you must take until it is all gone. return to the ED for continued ear pain after three days of antibiotics, severe nausea and vomiting, unable to keep fluids down, shortness of breath, severe lightheadness or passing out, other new or worsening symptoms. Call your doctor on Thursday for follow up. you must call the ED to obtain the results to the flu test. It should be back within the hour. - Post Discharge Activity
[2019-04-10 12:13] VITALS: BMI 22.9
[2019-04-10] MEDS ORDERED: IBUPROFEN 600 MG TABLET (FP) PO ONE ×2 (12:19→13:37)
[2019-04-10 13:37] VITALS: BP 102/58; PULSE 90; TEMP 100.2
== END 2019-04-10 13:45 | disposition home or self-care (01) ==
LOC: FER 11:30
DX: H66.90 Otitis media, unspecified, unspecified ear (principal); K21.9 Gastro-esophageal reflux disease without esophagitis; I51.9 Heart disease, unspecified; Z88.8 Allergy status to other drugs, medicaments and biological substances
CPT/HCPCS: 87070; 87804; 87880; 99282-25

== ENCOUNTER 2020-02-11 16:45 | Emergency (ER) | payer BC ==
[2020-02-11 17:05] VITALS: BP 107/52; PULSE 70; TEMP 97.9; BMI 22.3
[2020-02-11 17:51] LABS: ALBUMIN 4.2 g/dl (3.4-5.0); BILIRUBIN,TOTAL 1.9 mg/dl (0.2-1); CALCIUM 9.3 mg/dl (8.5-10); CREATININE 0.8 mg/dl (0.55-1.3); POTASSIUM 3.9 mmol/L (3.5-5.1); TOT PROT 7.7 g/dl (6.4-8.2)
[2020-02-11 17:52] LABS: BASO % 0.6 % (0-2.0); EOS % 1.1 % (0-4.5); HEMATOCRIT 38.8 % (32.4-45.2); HEMOGLOBIN 13.2 GM/dl (10.7-15.3); LYMPH % 24.4 % (8-40); MCH 30.7 pg (25.7-33.7); MCHC 34.1 g/dl (32.0-36.0); MEAN CELL VOLUME 90.1 fl (80-96); MEAN PLT VOLUME 9.7 fl (7.5-11.1); MONO % 4.2 % (3.8-10.2); NEUT % 69.7 % (42.8-82.8); PLATELET COUNT 260 K/MM3 (134-434); RDW 11.9 % (11.6-15.6); WHITE BLOOD COUNT 7.4 K/mm3 (4.0-10.8)
[2020-02-11] MEDS ORDERED: ACETAMINOPHEN 1000 MG/100 ML VIAL (NON FORMULARY) IVPB ONE (17:56)
[2020-02-11] MEDS ORDERED: SODIUM CHLORIDE 0.9% 500 ML INFUS.BAG IV ONE (17:56)
[2020-02-11] MEDS ORDERED: ONDANSETRON 4 MG/2 ML VIAL IVPUSH ONE (17:56)
[2020-02-11] MEDS ORDERED: ACETAMINOPHEN INJECTION 100 ML IVPB ONE (17:58)
[2020-02-11] MEDS ORDERED: ONDANSETRON 4 MG/2 ML VIAL ONE (17:58)
== END 2020-02-11 21:12 | disposition home or self-care (01) ==
LOC: FER 16:45 → SUPCPDRO 16:45 → FER 21:12
PROC: 3E0333Z Introduction of Anti-inflammatory into Peripheral Vein, Percutaneous Approach (ICD-10-PCS; principal; 2020-02-11)
PROC: 3E033GC Introduction of Other Therapeutic Substance into Peripheral Vein, Percutaneous Approach (ICD-10-PCS; 2020-02-11)
DX: J06.9 Acute upper respiratory infection, unspecified (principal)
CPT/HCPCS: 36415; 71275-TC; 80053; 84484; 84703; 85025; 85379; 93005; 93971-TC; 99284-25; C9803; J0131; Q9967; U0003

== ENCOUNTER 2020-05-24 16:24 | Emergency (ER) | payer BC ==
[2020-05-24] MEDS ORDERED: IBUPROFEN 400 MG TABLET (FP) PO ONE ×2 (16:31→16:38)
[2020-05-24 16:33] VITALS: BP 132/80; PULSE 89; TEMP 98.5; BMI 22.4
== END 2020-05-24 16:55 | disposition home or self-care (01) ==
LOC: FER 16:24
DX: M54.5 Low back pain (principal)
CPT/HCPCS: 99283-25

== ENCOUNTER 2020-06-06 04:30 | Day surgery (SDC) | payer BC ==
[2020-06-04 11:10] VITALS: BMI 49.1
[2020-06-06] MEDS ORDERED: MIDAZOLAM HCL 2 MG/2 ML SINGLE DOSE VIAL ONE ×2 (12:06→12:11)
[2020-06-06] MEDS ORDERED: PROPOFOL 20 ML ONE (12:06)
[2020-06-06] MEDS ORDERED: fentaNYL CITRATE 250 MCG/5 ML VIAL ONE (12:11)
[2020-06-06] MEDS ORDERED: LIDOCAINE HCL 1%, 10 MG/ML (20ML VIAL) ONE (12:20)
[2020-06-06] MEDS ORDERED: LIDOCAINE HCL 1% PRESERVATIVE FREE - 30ML VIAL IJ ONE ×2 (13:07)
[2020-06-06] MEDS ORDERED: BUPIVACAINE HCL/PF 0.5% (5 MG/ML) 30 ML VIAL IJ ONE ×2 (13:07)
[2020-06-06] MEDS ORDERED: ONDANSETRON 4 MG/2 ML VIAL IVPUSH PRN (13:53)
[2020-06-06] MEDS ORDERED: MIDODRINE HCL 5 MG TABLET PO ONE (15:15)
[2020-06-06 16:40] VITALS: BP 106/66; PULSE 67; TEMP 98.1
== END 2020-06-06 16:00 | disposition home or self-care (01) ==
LOC: JASU-SURG 04:30
PROVIDERS: ATTEND Surgery
PROC: 0JB70ZZ Excision of Back Subcutaneous Tissue and Fascia, Open Approach (ICD-10-PCS; principal; 2020-06-06 12:00)
DX: D17.1 Benign lipomatous neoplasm of skin and subcutaneous tissue of trunk (principal)
CPT/HCPCS: 81025; 88304-TC; 94760

== ENCOUNTER 2020-09-17 12:49 | Emergency (ER) | payer BC ==
[2020-09-17 12:56] VITALS: BMI 22.4
[2020-09-17] MEDS ORDERED: SODIUM CHLORIDE 0.9% 500 ML INFUS.BAG IV ONE (13:36)
[2020-09-17] MEDS ORDERED: ALBUTEROL SO4 2.5/IPRATROPIUM 0.5 INH SOL 3 ML VIAL.NEB. NEB ONE ×2 (13:36→13:40)
[2020-09-17] MEDS ORDERED: ALBUTEROL SO4 0.083% IH SOL 2.5 MG/3 ML VIAL.NEB. NEB ONE (13:40)
[2020-09-17 14:50] LABS: BASO % 1.1 % (0-2.0); EOS % 2.2 % (0-4.5); HEMATOCRIT 35.2 % (32.4-45.2); LYMPH % 27.1 % (8-40); MCH 29.8 pg (25.7-33.7); MCHC 34.1 g/dl (32.0-36.0); MEAN CELL VOLUME 87.4 fl (80-96); MEAN PLT VOLUME 9.6 fl (7.5-11.1); MONO % 7.6 % (3.8-10.2); PLATELET COUNT 306 10^3/uL (134-434); RBC 4.03 M/mm3 (3.60-5.2); RDW 12.3 % (11.6-15.6); WHITE BLOOD COUNT 9.1 K/mm3 (4.0-10.0)
[2020-09-17 15:03] LABS: CALCIUM 8.9 mg/dL (8.5-10.1)
[2020-09-17 15:04] LABS: ALBUMIN 3.5 g/dl (3.4-5.0); BLOOD UREA NITROGEN 8.2 mg/dL (7-18); MAGNESIUM 1.9 mg/dL (1.8-2.4)
[2020-09-17 15:07] LABS: CREATININE 0.8 mg/dL (0.55-1.3); PHOSPHOROUS 1.7 mg/dL (2.5-4.9)
[2020-09-17 15:08] LABS: BILIRUBIN,TOTAL 0.8 mg/dL (0.2-1); TOT PROT 7.2 g/dl (6.4-8.2)
[2020-09-17] MEDS ORDERED: NAPH,MB-DB/K PH,MBDB POWDER PACKET PO ONE (15:08)
[2020-09-17 15:44] LABS: INR 1.05 (0.83-1.09); PROTHROMBIN TIME (PATIENT) 12.9 SEC (9.7-13.0)
[2020-09-17] MEDS ORDERED: NAPH,MB-DB/K PH,MBDB POWDER PACKET ONE (16:27)
[2020-09-17 17:57] VITALS: BP 115/68; PULSE 58; TEMP 98.1
== END 2020-09-17 17:50 | disposition home or self-care (01) ==
LOC: JER 12:49
PROC: 3E0F7GC Introduction of Other Therapeutic Substance into Respiratory Tract, Via Natural or Artificial Opening (ICD-10-PCS; principal; 2020-09-17)
DX: R06.02 Shortness of breath (principal); R07.9 Chest pain, unspecified
CPT/HCPCS: 36415; 71045-TC-FY; 71250-TC; 80053; 83735; 84100; 84703; 85025; 85379; 85610; 93005; 93010; 99285-25; C9803; U0003; U0005

== ENCOUNTER 2020-10-08 21:33 | Inpatient (IN) | payer BC ==
[2020-10-08 21:40] VITALS: BMI 22.4
[2020-10-08] MEDS ORDERED: ONDANSETRON 4 MG/2 ML VIAL IVPUSH ONE (22:36)
[2020-10-08] MEDS ORDERED: morphine CARPU-JECT 4 MG/1 ML DISP.SYRIN IVPUSH ONE ×2 (22:39→23:24)
[2020-10-08] MEDS ORDERED: FAMOTIDINE 20 MG/50 ML IVPB 20 MG/50 ML MG IVPB ONE (22:40)
[2020-10-08] MEDS ORDERED: MAG HYDROX/AL HYDROX/SIMETH 30 ML UNIT-DOSE CUP PO ONE (22:40)
[2020-10-08] MEDS ORDERED: LACTATED RINGERS SOLUTION 1000 ML INFUS.BAG IV ONE (22:40)
[2020-10-08] MEDS ORDERED: MORPHINE SULFATE 2 MG/ML VIAL ONE (22:43)
[2020-10-08] MEDS ORDERED: ONDANSETRON 4 MG/2 ML VIAL ONE (22:43)
[2020-10-08] MEDS ORDERED: ACETAMINOPHEN INJECTION 100 ML IVPB ONE (22:43)
[2020-10-08 22:49] LABS: BASO % 0.9 % (0-2.0); EOS % 2.9 % (0-4.5); HEMATOCRIT 36.6 % (32.4-45.2); HEMOGLOBIN 12.6 GM/dL (10.7-15.3); MCH 30.3 pg (25.7-33.7); MCHC 34.4 g/dl (32.0-36.0); MEAN CELL VOLUME 88.2 fl (80-96); MEAN PLT VOLUME 9.3 fl (7.5-11.1); MONO % 6.9 % (3.8-10.2); NEUT % 44.3 % (42.8-82.8); PLATELET COUNT 256 10^3/uL (134-434); RBC 4.15 M/mm3 (3.60-5.2); RDW 12.7 % (11.6-15.6); WHITE BLOOD COUNT 7.1 K/mm3 (4.0-10.0)
[2020-10-08] MEDS: ACETAMINOPHEN 1000 MG/100 ML VIAL (NON FORMULARY) IVPB ONE ×2 (22:51→23:03)
[2020-10-08] MEDS ORDERED: SODIUM CHLORIDE 0.9% 500 ML INFUS.BAG IV ONE (22:52)
[2020-10-08] MEDS ORDERED: MAG HYDROX/AL HYDROX/SIMETH 30 ML UNIT-DOSE CUP ONE (22:53)
[2020-10-08] MEDS ORDERED: ACETAMINOPHEN 1000 MG/100 ML VIAL (NON FORMULARY) IVPB ONE (22:56)
[2020-10-08 23:03] LABS: ALBUMIN 3.8 g/dl (3.4-5.0); BLOOD UREA NITROGEN 11.8 mg/dL (7-18); CALCIUM 9.3 mg/dL (8.5-10.1)
[2020-10-08 23:06] LABS: CREATININE 0.8 mg/dL (0.55-1.3)
[2020-10-08 23:08] LABS: TOT PROT 7.6 g/dl (6.4-8.2)
[2020-10-09 00:34] VITALS: BP 128/78; PULSE 52; TEMP 98.4
[2020-10-09] MEDS ORDERED: ONDANSETRON 4 MG/2 ML VIAL ONE (00:37)
[2020-10-09] MEDS ORDERED: ONDANSETRON 4 MG/2 ML VIAL IVPUSH ONE (00:48)
[2020-10-09 01:29] LABS: PH,URINE 6.5 (5.0-8.0); URINE APPEARANCE CLEAR; URINE BILIRUBIN NEGATIVE (NEGATIVE); URINE COLOR YELLOW; URINE GLUCOSE (UA) NEGATIVE (NEGATIVE); URINE KETONE NEGATIVE (NEGATIVE); URINE LEUK ESTERASE NEGATIVE (NEGATIVE); URINE NITRITE NEGATIVE (NEGATIVE); URINE PROTEIN NEGATIVE (NEGATIVE); URINE UROBILINOGEN 0.2 mg/dL (0.2-1.0)
[2020-10-09] MEDS ORDERED: POLYETHYLENE GLYCOL 3350 119 GM BTL PO ONE (03:53)
[2020-10-09] MEDS ORDERED: DOCUSATE SODIUM 100 MG CAPSULE (FP) PO ONE ×2 (03:53→04:32)
[2020-10-09] MEDS ORDERED: POLYETHYLENE GLYCOL (HEALTHYLAX) 3350 17 GM PACKET ONE (04:32)
== END 2020-10-09 05:27 | disposition home or self-care (01) | DRG 392 ==
LOC: JER 21:33 → JERBED 10-09 01:04
PROVIDERS: ADMIT Hospitalist; ATTEND Hospitalist
DX: K59.09 Other constipation (principal); R10.11 Right upper quadrant pain; K21.9 Gastro-esophageal reflux disease without esophagitis; F41.9 Anxiety disorder, unspecified
CPT/HCPCS: 36415; 74177-TC; 76705-TC; 76830-TC; 80053; 81003; 83690; 84703; 85025; 87086; 87491; 87591; 99285-25; C9803; J0131; Q9967; U0003; U0005

== ENCOUNTER 2021-04-02 10:40 | Emergency (ER) | payer BC ==
[2021-04-02 10:55] VITALS: BMI 22.4
[2021-04-02 11:54] VITALS: BP 106/84; PULSE 95; TEMP 100.6
[2021-04-02] MEDS ORDERED: ACETAMINOPHEN 325 MG TABLET (FP) PO ONE (12:12)
[2021-04-02] MEDS ORDERED: ACETAMINOPHEN 325 MG TABLET (FP) ONE (12:14)
[2021-04-04 05:06] LABS: SARS-CoV-2 NAA Detected (Not Detected)
== END 2021-04-02 13:13 | disposition home or self-care (01) ==
LOC: FER 10:40
DX: J06.9 Acute upper respiratory infection, unspecified (principal); Z11.52 Encounter for screening for COVID-19
CPT/HCPCS: 71045-TC-FY; 87804; 99284-25; C9803; U0003; U0005